=== PATIENT | male | born 1955 | race Caucasian/White ===

== ENCOUNTER 2022-10-15 05:41 | Inpatient (IN) | payer OTHER ==
[~2022-10-15] VITALS: Ht 180.3 cm; Wt 84.9 kg
[~2022-10-15 05:41] MED LIST: ACET-3385 PO; RINGERS SOLUTION,LACTATED 1,000 ML IV ONE
[2022-10-15] MEDS ORDERED: ETHYL ALCOHOL 62% ANTISEPTIC NASAL SANITIZER 0.6 ML AMPUL NASAL ONE (06:00)
[2022-10-15] MEDS ORDERED: HYDROmorphone HCL 2 MG/ML SYRINGE IVP PRN (06:30)
[2022-10-15] MEDS ORDERED: GABAPENTIN 100 MG CAPSULE PO ONE (06:30)
[2022-10-15] MEDS ORDERED: CELECOXIB 200 MG CAPSULE PO ONE (06:30)
[2022-10-15] MEDS ORDERED: FentaNYL CITRATE PF 100 MCG/2 ML VIAL IVP PRN (06:30)
[2022-10-15] MEDS ORDERED: MEPERIDINE-PF 25 MG/ML VIAL IVP PRN (06:30)
[2022-10-15] MEDS ORDERED: VANCOMYCIN HCL 1 GM/VIAL ONE (06:31)
[2022-10-15] MEDS ORDERED: THROMBIN, BOVINE 20000 UNITS/VIAL POWDER TP ONE (06:31)
[2022-10-15] MEDS ORDERED: BUPIVACAINE/EPI/PF 0.5% 30 ML VIAL ONE ×2 (06:31→08:51)
[2022-10-15] MEDS ORDERED: BUPIVACAINE LIPOSOME/PF 1.3%-13.3MG/ML SUSPENSION 20 ML VIAL INJ ONE ×2 (06:45)
[2022-10-15] MEDS ORDERED: CELECOXIB 200 MG CAPSULE ONE (06:49)
[2022-10-15] MEDS ORDERED: SODIUM CHLORIDE 0.9% 1,000 ML ONE (07:07)
[2022-10-15] MEDS ORDERED: SUGAMMADEX SODIUM 200 MG/2 ML VIAL IVP ONE (08:53)
[2022-10-15] MEDS ORDERED: DEXAMETHASONE SOD PHOS 4 MG/ML VIAL IVP PRN (09:15)
[2022-10-15] MEDS ORDERED: DiphenhydrAMINE HCL 50 MG/ML VIAL IVP PRN (09:15)
[2022-10-15] MEDS ORDERED: ACETAMINOPHEN 325 MG TABLET PO PRN (09:15)
[2022-10-15] MEDS ORDERED: ONDANSETRON HCL 4 MG/2 ML VIAL IVP PRN (09:15)
[2022-10-15] MEDS ORDERED: HYDROmorphone HCL 2 MG/ML SYRINGE ONE (09:58)
[2022-10-15] MEDS: POTASSIUM CHL 20 MEQ/D5-0.45NS 1,000 ML IV SCH ×2 (10:00→20:06)
[2022-10-15] MEDS: HYDROmorphone HCL 2 MG/ML SYRINGE IVP PRN (10:00)
[2022-10-15] MEDS ORDERED: FentaNYL CITRATE PF 100 MCG/2 ML VIAL ONE (10:47)
[2022-10-15] MEDS ORDERED: RINGERS SOLUTION,LACTATED 1,000 ML IV ONE (11:30)
[2022-10-15 11:40] VITALS: BP 142/91
[2022-10-15] MEDS ORDERED: DEXAMETHASONE SOD PHOS 4 MG/ML VIAL IVP ONE (12:00)
[2022-10-15] MEDS ORDERED: EPHEDrine SULFATE 50 MG/ML VIAL IM ONE (12:00)
[2022-10-15] MEDS ORDERED: PROPOFOL 1% 20 ML VIAL IVP ONE (12:00)
[2022-10-15] MEDS ORDERED: ROCURONIUM BROMIDE 10 MG/ML 5 ML VIAL IVP ONE (12:00)
[2022-10-15] MEDS ORDERED: 0.9% SODIUM CHLORIDE 10 ML VIAL IVP ONE (12:00)
[2022-10-15] MEDS ORDERED: ONDANSETRON HCL 4 MG/2 ML VIAL IVP ONE (12:00)
[2022-10-15] MEDS ORDERED: KETOROLAC TROMETHAMINE 60 MG/2 ML VIAL IM ONE (12:00)
[2022-10-15] MEDS ORDERED: LIDOCAINE/PF 2% 5 ML VIAL IM ONE (12:00)
[2022-10-15] MEDS ORDERED: SODIUM CHLORIDE 0.9% 250 ML IV ONE (12:33)
[2022-10-15] MEDS: ACETAMINOPHEN 1000 MG/ISO-OSM 100 ML IV SCH ×3 (12:48→23:56)
[2022-10-15] MEDS: CeFAZolin 1 GM/DEXTROSE 50 ML IV SCH ×2 (12:55→20:06)
[2022-10-15] MEDS: OxyCODONE HCL/ACETAMINOPHEN 5-325 MG TABLET PO PRN ×2 (16:17→20:06)
[2022-10-15 17:18] VITALS: BP 149/100
[2022-10-15 20:05] VITALS: BP 131/80
[2022-10-16] MEDS ORDERED: IPRATROPIUM BROMIDE 0.5 MG/2.5 ML NEB SOLUTION NEB PRN (01:45)
[2022-10-16] MEDS ORDERED: MAGNESIUM HYDROXIDE SUSPENSION 30 ML UDCUP PO PRN (01:45)
[2022-10-16] MEDS ORDERED: ZOLPIDEM TARTRATE 5 MG TABLET PO PRN (01:45)
[2022-10-16] MEDS ORDERED: ONDANSETRON HCL 4 MG/2 ML VIAL IVP PRN (01:45)
[2022-10-16] MEDS ORDERED: ACETAMINOPHEN 325 MG TABLET PO PRN (01:45)
[2022-10-16] MEDS ORDERED: ALBUTEROL SULFATE 2.5 MG/0.5 ML NEB SOLUTION NEB PRN (01:45)
[2022-10-16] MEDS ORDERED: BISACODYL 10 MG RECTAL RECTAL SUPPOSITORY PR PRN (01:45)
[2022-10-16] MEDS: CeFAZolin 1 GM/DEXTROSE 50 ML IV SCH (04:26)
[2022-10-16 04:35] VITALS: BP 148/87
[2022-10-16] MEDS: HYDROmorphone HCL 2 MG/ML SYRINGE IVP PRN ×4 (04:38→18:31)
[2022-10-16] MEDS: OXYGEN THERAPY IH SCH ×2 (08:00→20:00)
[2022-10-16] MEDS: DOCUSATE SODIUM 100 MG CAPSULE PO SCH ×2 (08:07→22:41)
[2022-10-16] MEDS: HEPARIN SODIUM,PORCINE 5,000 UNITS/ML VIAL SQ SCH ×2 (08:08→17:08)
[2022-10-16] MEDS: PANTOPRAZOLE SODIUM 40 MG/VIAL IVP SCH (08:12)
[2022-10-16 08:20] VITALS: BP 144/88
[2022-10-16 16:14] VITALS: BP 148/84
[2022-10-16] MEDS ORDERED: BENZOCAINE/MENTHOL LOZENGE [6 LOZENGES/PACKET] PO PRN (18:00)
[2022-10-16 19:26] VITALS: BP 148/90
[2022-10-16] MEDS: OxyCODONE HCL/ACETAMINOPHEN 5-325 MG TABLET PO PRN (22:51)
[2022-10-17] MEDS ORDERED: MIDAZOLAM HCL 2 MG/2 ML VIAL IVP ONE (05:36)
[2022-10-17] MEDS ORDERED: MORPHINE SULFATE/PF 0.5 MG/ML 10 ML AMP IVP ONE (05:36)
[2022-10-17] MEDS ORDERED: FentaNYL CITRATE PF 100 MCG/2 ML VIAL IVP ONE (05:36)
[2022-10-17 06:05] VITALS: BP 145/84
[2022-10-17] MEDS: OxyCODONE HCL/ACETAMINOPHEN 5-325 MG TABLET PO PRN (07:56)
[2022-10-17] MEDS: DOCUSATE SODIUM 100 MG CAPSULE PO SCH (07:57)
[2022-10-17] MEDS: PANTOPRAZOLE SODIUM 40 MG/VIAL IVP SCH (08:00)
[2022-10-17] MEDS: OXYGEN THERAPY IH SCH (08:00)
[2022-10-17] MEDS: HEPARIN SODIUM,PORCINE 5,000 UNITS/ML VIAL SQ SCH ×2 (08:02)
[2022-10-17 08:15] VITALS: BP 135/81
[2022-10-17] MEDS ORDERED: ONDA-104 PO (10:21)
== END 2022-10-17 14:44 | disposition home or self-care (01) | DRG 520 ==
LOC: 6S 05:41
PROVIDERS: ADMIT Neurological Surgery; ATTEND Neurological Surgery
PROC: 01NB0ZZ Release Lumbar Nerve, Open Approach (ICD-10-PCS; principal; 2022-10-16)
PROC: 0SB20ZZ Excision of Lumbar Vertebral Disc, Open Approach (ICD-10-PCS; 2022-10-16)
PROC: 4A11X4G Monitoring of Peripheral Nervous Electrical Activity, Intraoperative, External Approach (ICD-10-PCS; 2022-10-16)
DX: M51.26 Other intervertebral disc displacement, lumbar region (principal)
CPT/HCPCS: 87081; 97116; 97162; 97530; C9113; C9290; G0238; J0131; J0690; J1100; J1170; J1644; J1885; J2250; J2274; J2405; J2704; J3010; J3370; J3480; J3490; J7030; J7050; J7120; Q9967